=== PATIENT | male | born 1945 | race African-American/Black ===

== ENCOUNTER → 2020-05-22 | Outpatient (CLI) | payer OTHER | LOC: MRI 14:47 | PROVIDERS: ATTEND Family Medicine | DX: S83.411A Sprain of medial collateral ligament of right knee, initial encounter (principal); M25.861 Other specified joint disorders, right knee; X58.XXXA Exposure to other specified factors, initial encounter; Y93.89 Activity, other specified; Y92.89 Other specified places as the place of occurrence of the external cause; Y99.8 Other external cause status ==